=== PATIENT | male | born 1970 | race Caucasian/White ===

== ENCOUNTER 2018-08-13 08:59 | Day surgery (SDC) | payer OTHER ==
[2018-08-13] MEDS ORDERED: NA CHLORIDE 0.9% 1,000 ML ONE (09:11)
[2018-08-13] MEDS ORDERED: FENTANYL CITR 100 MCG/2 ML ONE (09:59)
[2018-08-13] MEDS ORDERED: FLUMAZENIL 0.1 MG/ML (5 mL VIAL) IV ONE (09:59)
[2018-08-13] MEDS ORDERED: MIDAZOLAM HCL 2 MG/2 ML INJ ONE (09:59)
[2018-08-13] MEDS ORDERED: NALOXONE 0.4 MG/ML VIAL ONE (09:59)
--- NOTE | 2018-08-13 13:21 | RAD REPORT ---
EXAM DESCRIPTION: CT - Renal Biopsy CT - 08/13/2018 1:04 pm CLINICAL HISTORY: LT RENAL BX COMPARISON: No comparisons FINDINGS: Preoperative diagnosis: Vasculitis Post operative diagnosis: Same Conscious Sedation: 60 minutes of conscious sedation utilizing fentanyl and midazolam was administere d the patient. Patient was continuously monitored by nursing staff. Contrast used: NONE Estimated blood loss: less than 5 mL Specimens: 3x 18 gauge core biopsies of the left kidney inferior pole. The patient was placed prone on the table and the posterior left flank area was prepped and draped in the usual sterile fashion. 1% lidocaine was infiltrated into the subcutaneous tissues for local anes thesia. Under computed tomographic guidance, a 17 gauge introducer was advanced into the inferior lef t kidney. Subsequently, a 18 gauge, 2 cm long, 20 mm throw core biopsy gun was advanced into the lesi on and 3 cores were obtained. Postprocedure imaging demonstrated no complications. Samples were given to pathology for analysis. Th e patient tolerated the procedure without immediate complication and transferred to the recovery room in stable condition. IMPRESSION: Successful CT-guided nonfocal left renal biopsy. All CT scans are performed using dose optimization technique as appropriate and may include automated exposure control or mA/KV adjustment according to patient size.
== END 2018-08-13 14:30 | disposition home or self-care (01) ==
LOC: DS 08:59
PROVIDERS: ATTEND Internal Medicine
DX: N17.9 Acute kidney failure, unspecified (principal); I77.6 Arteritis, unspecified; N26.9 Renal sclerosis, unspecified; N05.1 Unspecified nephritic syndrome with focal and segmental glomerular lesions; N02.8 Recurrent and persistent hematuria with other morphologic changes
CPT/HCPCS: 88300; J2250; J2310; J3010; J7030